=== PATIENT | male | born 1950 | race Caucasian/White ===

== ENCOUNTER → 2017-01-07 | Outpatient (CLI) | payer MEDICARE, BC ==
[~2017-01-07] MED LIST: AMBIEN 10MG10 MG PO; AMBIEN5 MG PO; ATIVAN 0.50.5 MG/TAB PO; CYMBALTA 60MG60 MG PO; DIAMOX 250MG250 MG PO; GLUCOPHAGE500 MG/TAB PO; LIPITOR 80MG80 MG PO; LISINOPRIL2.5 MG PO; PRINIVIL2.5 MG PO
== END ==
LOC: COL.RAD 01-04 10:30
DX: Z13.6 Encounter for screening for cardiovascular disorders (principal)

== ENCOUNTER 2017-02-28 11:15 | Inpatient (IN) | payer MEDICARE, BC ==
[~2017-02-28] VITALS: Ht 185.4 cm; Wt 84.0 kg
[~2017-02-28 11:15] MED LIST changes: -GLUCOPHAGE500 MG/TAB PO
[2017-03-22] VITALS (8 sets, daily range): BP systolic 131–153; BP diastolic 63–79; PULSE 70–81
[2017-03-22] MEDS ORDERED: GLUCOPHAGE500 MG/TAB PO (13:02)
[2017-03-23 01:55] VITALS: BP 119/59; PULSE 78; TEMP 97.8
[2017-03-23 06:40] VITALS: BP 123/63; PULSE 72; TEMP 98.2
[2017-03-23 07:38] LABS: HEMATOCRIT 39.4 % (42.0-52.0); HEMOGLOBIN 13.1 g/dl (13.5-18.0)
[2017-03-23 07:53] LABS: CALCIUM 8.5 mg/dL (8.4-10.2); CREATININE, serum 0.83 mg/dL (0.66-1.25); POTASSIUM 3.8 mmol/L (3.4-5.0)
[2017-03-23 09:38] VITALS: BP 118/61; PULSE 75; TEMP 98.9
[2017-03-23 13:37] VITALS: BP 125/63; PULSE 76; TEMP 97.7
[2017-03-23 18:16] VITALS: BP 127/62; PULSE 66; TEMP 97.8
[2017-03-23 21:27] VITALS: BP 98/49; PULSE 66; TEMP 98.5
[2017-03-24] VITALS (7 sets, daily range): BP systolic 103–116; BP diastolic 50–82; PULSE 64–75; TEMP 97.8–98.6
[2017-03-25 02:42] VITALS: BP 111/60; PULSE 72; TEMP 97.3
[2017-03-25 04:34] VITALS: BP 109/55; PULSE 68; TEMP 97.7
[2017-03-25 09:36] VITALS: BP 113/62; PULSE 72; TEMP 98.1
== END 2017-03-25 14:48 | disposition home or self-care (01) | DRG 331 ==
LOC: INPTSU 03-22 11:58 → SURG 03-22 14:30
PROVIDERS: Surgery
PROC: 8E0W4CZ Robotic Assisted Procedure of Trunk Region, Percutaneous Endoscopic Approach (ICD-10-PCS; 2017-03-22)
PROC: 0DBL4ZZ Excision of Transverse Colon, Percutaneous Endoscopic Approach (ICD-10-PCS; principal; 2017-03-22 14:30)
DX: D12.3 Benign neoplasm of transverse colon (principal); E11.9 Type 2 diabetes mellitus without complications
CPT/HCPCS: A4315; J0690; J0694; J1100; J1650; J1885; J2405; J2704; J3010; J7030

== ENCOUNTER → 2018-06-02 | Outpatient (CLI) | payer MEDICARE, BC ==
[~2018-06-02] MED LIST changes: +GLUCOPHAGE500 MG/TAB PO
== END ==
LOC: COL.RAD 07:17
DX: R51 Headache (principal); M17.12 Unilateral primary osteoarthritis, left knee; M89.38 Hypertrophy of bone, other site; M71.22 Synovial cyst of popliteal space [Baker], left knee

== ENCOUNTER → 2018-11-27 | Outpatient (CLI) | payer MEDICARE, BC | LOC: COL.RAD 09:57 | DX: K52.839 Microscopic colitis, unspecified (principal); E11.9 Type 2 diabetes mellitus without complications; N20.0 Calculus of kidney; R19.4 Change in bowel habit | CPT/HCPCS: Q9967 ==

== ENCOUNTER → 2018-12-07 | Outpatient (CLI) | payer MEDICARE, BC | LOC: COL.RAD 06:50 | DX: K52.839 Microscopic colitis, unspecified (principal) | CPT/HCPCS: A9541 ==

== ENCOUNTER → 2019-02-08 | Outpatient (CLI) | payer MEDICARE, BC | LOC: COL.RAD 10:15 | DX: M25.552 Pain in left hip (principal) | CPT/HCPCS: J3301; Q9967 ==

== ENCOUNTER → 2019-08-23 | Outpatient (CLI) | payer MEDICARE, BC | LOC: COL.RAD 07:16 | DX: I70.0 Atherosclerosis of aorta (principal); G89.29 Other chronic pain; Z98.890 Other specified postprocedural states | CPT/HCPCS: Q9967 ==

== ENCOUNTER → 2021-02-09 | Outpatient (CLI) | payer MEDICARE, BC ==
[~2021-02-09] MED LIST changes: +ASPIRIN 32325 MG/TAB PO; +CREON 120000 U-1 ECC PO; +FLOMAX 0.40.4 MG/CAP PO; +MOBIC15 MG PO; +NORCO 325 MG-51 TAB PO; +PERCOCET 325 MG1 TA2 PO; -PRINIVIL2.5 MG PO; +PRINIVIL40 MG PO
== END ==
LOC: COL.RAD 13:52
DX: M25.551 Pain in right hip (principal)
CPT/HCPCS: J3301; Q9967

== ENCOUNTER 2021-08-14 10:24 | Outpatient (CLI) | payer MEDICARE, BC ==
[~2021-08-14] VITALS: Ht 185.4 cm; Wt 94.8 kg
[~2021-08-14 10:24] MED LIST changes: -ASPIRIN 32325 MG/TAB PO; -CREON 120000 U-1 ECC PO; -FLOMAX 0.40.4 MG/CAP PO; -MOBIC15 MG PO; -NORCO 325 MG-51 TAB PO; -PERCOCET 325 MG1 TA2 PO
[2021-08-14] MEDS ORDERED: ASPIRIN 32325 MG/TAB PO (11:00)
[2021-08-14] MEDS ORDERED: MOBIC15 MG PO (11:04)
[2021-08-14] MEDS ORDERED: PERCOCET 325 MG1 TA2 PO (11:06)
[2021-08-14] MEDS ORDERED: NORCO 325 MG-51 TAB PO (11:28)
[2021-08-14 11:34] VITALS: BP 175/70; PULSE 90; TEMP 98.5
--- NOTE | 2021-08-14 11:40 | NUR ---
Pt ambulates out of dept with . He plans to report to [facility]. He is aware he is to continue to remain NPO. PICC to rt upper arm wrapped with merrick.
[2021-08-14 11:48] LABS: ALBUMIN 3.9 gm/dL (3.5-5.0); BILIRUBIN,TOTAL 0.7 mg/dL (0.0-1.0); CALCIUM 8.9 mg/dL (8.4-10.2); CREATININE, serum 0.63 (0.66-1.25); POTASSIUM 4.1 mmol/L (3.4-5.0); TOTAL PROTEIN 7.3 gm/dL (6.4-8.2)
== END 2021-08-14 12:44 | disposition home or self-care (01) ==
LOC: EUO 10:24
PROVIDERS: Orthopaedic Surgery Sports Medicine
DX: Z45.2 Encounter for adjustment and management of vascular access device (principal)
CPT/HCPCS: C1751

== ENCOUNTER 2021-09-24 11:54 | Outpatient (CLI) | payer MEDICARE, BC ==
[~2021-09-24] VITALS: Ht 185.4 cm; Wt 94.0 kg
[~2021-09-24 11:54] MED LIST changes: +ASPIRIN 32325 MG/TAB PO; +MOBIC15 MG PO; +NORCO 325 MG-51 TAB PO; +PERCOCET 325 MG1 TA2 PO
[2021-09-24] MEDS ORDERED: FLOMAX 0.40.4 MG/CAP PO (12:12)
[2021-09-24] MEDS ORDERED: CREON 120000 U-1 ECC PO (12:13)
[2021-09-24 12:15] VITALS: BP 124/64; PULSE 68; TEMP 98.8
== END 2021-09-24 15:50 | disposition home or self-care (01) ==
LOC: EUO 11:54
DX: Z95.9 Presence of cardiac and vascular implant and graft, unspecified (principal); B95.7 Other staphylococcus as the cause of diseases classified elsewhere

== ENCOUNTER → 2021-12-09 | Outpatient (CLI) | payer MEDICARE, BC ==
[~2021-12-09] MED LIST changes: +CREON 120000 U-1 ECC PO; +FLOMAX 0.40.4 MG/CAP PO
[2021-12-09 12:24] LABS: BASO # 0.1 K/mm3 (0.0-0.2); EOS # 0.2 K/mm3 (0.0-0.7); EOS % 2.8 % (0.0-4.0); GRAN # 3.9 K/mm3 (1.4-6.5); GRAN % 67.5 % (42.2-75.2); HEMATOCRIT 45.8 % (42.0-52.0); HEMOGLOBIN 14.6 g/dl (13.5-18.0); LYMPH # 1.1 K/mm3 (1.2-3.4); LYMPH % 19.1 % (20.0-51.0); MEAN CELL VOLUME 91 fl (80.0-100.0); MEAN CORPUSCULAR HEMOGLOBIN 29 pg (27-31); MEAN CORPUSCULAR HGB CONC 32 g/dl (33.0-37.0); MEAN PLATELET VOLUME 10.1 fl (7.4-10.4); MONO # 0.5 K/mm3 (0.1-0.6); MONO % 9.3 % (1.7-9.3); PLATELET COUNT 220 K/mm3 (130-400); RED BLOOD COUNT 5.02 M/mm3 (4.20-5.60); REDCELL DISTRIBUTION WIDTH-CV 15.4 % (11.5-14.5)
[2021-12-09 12:52] LABS: ERYTHROCYTE SEDIMENTATION RATE 1 mm/hr (0-30)
== END ==
LOC: COL.LAB 11:58
PROVIDERS: Orthopaedic Surgery Sports Medicine
DX: M25.562 Pain in left knee (principal)

== ENCOUNTER 2022-05-10 16:06 | Inpatient (IN) | payer MEDICARE, BC ==
[~2022-05-10] VITALS: Ht 185.4 cm; Wt 95.2 kg
[~2022-05-10 16:06] MED LIST changes: +GLUCOPHAGE XR500 M1 PO; -GLUCOPHAGE500 MG/TAB PO
[2022-05-11] VITALS (14 sets, daily range): BP systolic 95–151; BP diastolic 58–84; PULSE 59–89; TEMP 97.7–98.4
[2022-05-11] MEDS ORDERED: CYMBALTA 20MG20 MG PO (06:43)
[2022-05-11] MEDS ORDERED: GLUCOPHAGE XR500 M1 PO (06:45)
[2022-05-11] MEDS ORDERED: PAMELOR 25MG25 MG PO (06:45)
[2022-05-11] MEDS ORDERED: BENTYL 10MG10 MG/CAP PO (06:48)
[2022-05-11 14:46] LABS: CREATININE, serum 0.75 mg/dL (0.72-1.25)
[2022-05-12] VITALS (7 sets, daily range): BP systolic 110–142; BP diastolic 50–64; PULSE 63–74; TEMP 97.6–98.7
[2022-05-12 06:29] LABS: HEMOGLOBIN 11.7 g/dl (13.5-18.0)
[2022-05-12 06:32] LABS: HEMATOCRIT 36.9 % (42.0-52.0)
[2022-05-12 10:54] LABS: BASO % 0.4 % (0.0-2.0); GRAN # 6.5 K/mm3 (1.4-6.5); GRAN % 84.5 % (42.2-75.2); HEMATOCRIT 36.6 % (42.0-52.0); HEMOGLOBIN 11.7 g/dl (13.5-18.0); LYMPH # 0.5 K/mm3 (1.2-3.4); LYMPH % 6.9 % (20.0-51.0); MEAN CELL VOLUME 95 fl (80.0-100.0); MEAN CORPUSCULAR HEMOGLOBIN 31 pg (27-31); MEAN CORPUSCULAR HGB CONC 32 g/dl (33.0-37.0); MEAN PLATELET VOLUME 10.3 fl (7.4-10.4); MONO # 0.6 K/mm3 (0.1-0.6); MONO % 7.9 % (1.7-9.3); PLATELET COUNT 214 K/mm3 (130-400); RED BLOOD COUNT 3.84 M/mm3 (4.20-5.60); REDCELL DISTRIBUTION WIDTH-CV 14.4 % (11.5-14.5)
[2022-05-13 06:40] LABS: BASO # 0.1 K/mm3 (0.0-0.2); BASO % 0.9 % (0.0-2.0); EOS # 0.1 K/mm3 (0.0-0.7); EOS % 1.1 % (0.0-4.0); GRAN % 72.9 % (42.2-75.2); HEMOGLOBIN 10.7 g/dl (13.5-18.0); LYMPH # 0.8 K/mm3 (1.2-3.4); LYMPH % 15.3 % (20.0-51.0); MEAN CELL VOLUME 94 fl (80.0-100.0); MEAN CORPUSCULAR HEMOGLOBIN 30 pg (27-31); MEAN CORPUSCULAR HGB CONC 32 g/dl (33.0-37.0); MEAN PLATELET VOLUME 10.2 fl (7.4-10.4); MONO # 0.5 K/mm3 (0.1-0.6); MONO % 9.4 % (1.7-9.3); PLATELET COUNT 195 K/mm3 (130-400); RED BLOOD COUNT 3.58 M/mm3 (4.20-5.60); REDCELL DISTRIBUTION WIDTH-CV 14.5 % (11.5-14.5)
[2022-05-13 06:41] VITALS: BP 120/51; PULSE 62; TEMP 98.2
[2022-05-13 06:43] LABS: HEMATOCRIT 33.5 % (42.0-52.0)
[2022-05-13 11:15] VITALS: BP 127/46; PULSE 68; TEMP 97.7
[2022-05-13 15:59] VITALS: BP 118/71; PULSE 69; TEMP 97.7
[2022-05-13 20:24] VITALS: BP 112/55; PULSE 61; TEMP 97.8
[2022-05-13 23:28] VITALS: BP 123/55; PULSE 66; TEMP 97.8
[2022-05-14 04:36] VITALS: BP 127/65; PULSE 61; TEMP 97.5
[2022-05-14 09:19] LABS: BASO # 0.1 K/mm3 (0.0-0.2); EOS # 0.1 K/mm3 (0.0-0.7); GRAN # 3.6 K/mm3 (1.4-6.5); GRAN % 72.8 % (42.2-75.2); HEMOGLOBIN 11.6 g/dl (13.5-18.0); LYMPH # 0.8 K/mm3 (1.2-3.4); LYMPH % 15.8 % (20.0-51.0); MEAN CELL VOLUME 93 fl (80.0-100.0); MEAN CORPUSCULAR HEMOGLOBIN 30 pg (27-31); MEAN CORPUSCULAR HGB CONC 32 g/dl (33.0-37.0); MEAN PLATELET VOLUME 9.7 fl (7.4-10.4); MONO # 0.4 K/mm3 (0.1-0.6); MONO % 7.8 % (1.7-9.3); PLATELET COUNT 226 K/mm3 (130-400); RED BLOOD COUNT 3.87 M/mm3 (4.20-5.60); REDCELL DISTRIBUTION WIDTH-CV 14.4 % (11.5-14.5)
[2022-05-14 10:11] LABS: ERYTHROCYTE SEDIMENTATION RATE 21 mm/hr (0-30)
[2022-05-14 11:11] VITALS: BP 99/67; PULSE 90; TEMP 98.2
[2022-05-14] MEDS ORDERED: VANCO 1.51.5 GM/250 IV ×2 (14:12→14:15)
[2022-05-14 15:22] VITALS: BP 125/51; PULSE 71; TEMP 98.3
[2022-05-14 20:55] VITALS: BP 123/54; PULSE 73; TEMP 98.5
[2022-05-15 00:54] VITALS: BP 140/52; PULSE 65; TEMP 97.8
[2022-05-15 07:00] VITALS: BP 99/69; PULSE 94; TEMP 98
[2022-05-15] MEDS ORDERED: ELIQUIS 2.5 PO (08:19)
== END 2022-05-15 09:20 | disposition home or self-care (01) | DRG 464 ==
LOC: INPTSU 05-11 05:44 → SURG 05-11 05:44
PROVIDERS: ADMIT Orthopaedic Surgery Sports Medicine
PROC: 02HV33Z Insertion of Infusion Device into Superior Vena Cava, Percutaneous Approach (ICD-10-PCS; principal; 2022-05-12)
PROC: 0SPD0JZ Removal of Synthetic Substitute from Left Knee Joint, Open Approach (ICD-10-PCS; 2022-05-15)
PROC: 0SHD08Z Insertion of Spacer into Left Knee Joint, Open Approach (ICD-10-PCS; 2022-05-15)
DX: T84.54XA Infection and inflammatory reaction due to internal left knee prosthesis, initial encounter (principal); M00.9 Pyogenic arthritis, unspecified; E11.9 Type 2 diabetes mellitus without complications; I10 Essential (primary) hypertension; E78.5 Hyperlipidemia, unspecified; B95.7 Other staphylococcus as the cause of diseases classified elsewhere; Y83.8 Other surgical procedures as the cause of abnormal reaction of the patient, or of later complication, without mention of misadventure at the time of the procedure; F32.A Depression, unspecified; Z85.89 Personal history of malignant neoplasm of other organs and systems; Y92.89 Other specified places as the place of occurrence of the external cause
CPT/HCPCS: A9284; C1713; C1751; C1776; J1100; J1170; J1200; J1885; J2250; J2405; J2543; J2704; J2795; J3010; J3260; J3370; J7050; J7120

== ENCOUNTER → 2022-08-09 | Outpatient (CLI) | payer MEDICARE, BC ==
[~2022-08-09] MED LIST changes: +BENTYL 10MG10 MG/CAP PO; +CYMBALTA 20MG20 MG PO; +ELIQUIS 2.5 PO; +PAMELOR 25MG25 MG PO; +VANCO 1.51.5 GM/250 IV
== END ==
LOC: MC.RAD 09:30
DX: N62 Hypertrophy of breast (principal); N64.4 Mastodynia